=== PATIENT | female | born 1980 | race Caucasian/White ===

== ENCOUNTER 2016-03-02 16:05 | Emergency (ER) | payer SELFPAY ==
[2016-03-02 16:18] VITALS: BP 115/77
--- NOTE | 2016-03-02 16:54 | ED ---
- HPI Summary HPI Summary: 35 F presents with instrument stick with a eliz today. 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 She immediately clean the area. She believes the patient does not have HIV but there is no way to get labs from the patient. She does not know when her last tetanus was. She is not currently . - History of Current Complaint Chief Complaint: EDExposureBodyFluid Stated Complaint: NEEDLE STICK Time Seen by Provider: 03/02/16 16:43 PMH/Surg Hx/FS Hx/Imm Hx Endocrine/Hematology History: Denies: Hx Diabetes Cardiovascular History: Denies: Hx Hypertension Infectious Disease History: No Infectious Disease History: Denies: Traveled Outside the [place] in Last 30 Days - Family History Known Family History: Positive: Hypertension - Social History Alcohol Use: None Substance Use Type: Reports: None Smoking Status (MU): Never Smoked Tobacco Review of Systems Negative: Fever Negative: Chest Pain Negative: Shortness Of Breath Positive: Other - instrument stick on All Other Systems Reviewed And Are Negative: Yes Physical Exam Triage Information Reviewed: Yes Vital Signs On Initial Exam: Initial Vitals Temp Pulse Resp BP Pulse Ox 98.6 F 85 16 115/77 100 03/02/16 16:14 03/02/16 16:14 03/02/16 16:14 03/02/16 16:14 03/02/16 16:14 Vital Signs Reviewed: Yes Appearance: Positive: Well-Appearing Skin: Positive: Warm, Dry, Other - no visible puncture wound visible Head/Face: Positive: Normal Head/Face Inspection Eyes: Positive: Normal, Conjunctiva Clear ENT: Positive: Normal ENT inspection, Pharynx normal, TMs normal Respiratory/Lung Sounds: Positive: Clear to Auscultation, Breath Sounds Present Cardiovascular: Positive: Normal, RRR Musculoskeletal: Positive: Strength/ROM Intact - of fingers Diagnostics - Vital Signs Vital Signs Temp Pulse Resp BP Pulse Ox 03/02/16 16:14 98.6 F 85 16 115/77 100 - Laboratory Lab Statement: Any lab studies that have been ordered have been reviewed, and results considered in the medical decision making process. Needlestick Course/Dx - Course Course Of Treatment: 35 F presents with instrument stick to right index finger, was struck with dental instrument, area was clean immediately after, sent by work here, discussed getting labs and that would be unable to obtain patient labs, patient agrees to get baseline labs, discussed risk vs benefit of HIV ppx and patient declines, patient refusing tetanus either, will follow up with primary, patient agrees with plan - Diagnoses Provider Diagnoses: Exposure to blood or body fluid Discharge - Discharge Plan Condition: Good Disposition: HOME Patient Education Materials: Body Substance Exposure (ED) Referrals: [facility] [place] [facility] [Outside] Additional Instructions: Return if develop any sign of infection such as fever, spreading redness or any new or worsening symptoms
[2016-03-02 17:53] LABS: Rapid HIV INT CONT QC Line Present
[2016-03-02 17:54] LABS: Rapid HIV Kit Lot# F209011
== END 2016-03-02 17:40 | disposition home or self-care (01) ==
LOC: ED 16:05
DX: Z77.21 Contact with and (suspected) exposure to potentially hazardous body fluids (principal)
CPT/HCPCS: 36415; 86703; 86706; 86803; 87340; 99282